=== PATIENT | male | born 1970 | race Caucasian/White ===

== ENCOUNTER 2018-06-27 15:24 | Emergency (ER) | payer OTHER ==
[~2018-06-27] VITALS: Ht 182.9 cm; Wt 90.7 kg
[~2018-06-27 15:24] MED LIST: CORICIDIN HBP1 EAC2 PO; FLONASE 0.05%50 MCG NASAL
[2018-06-27] MEDS ORDERED: LISINOPRIL10 MG PO (15:37)
[2018-06-27 16:19] LABS: HEMOGLOBIN 11.5 gm/dL (14.0-18.0); MCH 29.6 pg (26.0-34.0); MCHC 33.2 g/dL (28.0-37.0)
[2018-06-27 16:23] LABS: HEMATOCRIT 34.5 % (42.0-52.0); MCV 89.1 fL (80.0-100.0); NUCLEATED RBCS 0 /100WBC; RBC 3.87 mil/uL (4.50-6.00); RDW-CV 24.1 % (10.5-14.5)
[2018-06-27 16:26] VITALS: BP 146/104
[2018-06-27 16:28] LABS: APTT 28.2 Seconds (25.0-31.3); INR 1.1
[2018-06-27 16:31] LABS: WBC 1.3 thou/uL (4.0-11.0)
[2018-06-27 16:32] LABS: CALCIUM 7.6 mg/dL (8.5-10.1); CREATININE 0.6 mg/dL (0.6-1.3)
[2018-06-27 16:36] LABS: ALBUMIN 3.9 g/dL (3.4-5.0); TOTAL BILIRUBIN 1.8 mg/dL (<0.1-1.0); TOTAL PROTEIN 6.8 g/dL (6.4-8.2)
[2018-06-27 16:48] LABS: URINE BILIRUBIN NEGATIVE (Negative); URINE BLOOD NEGATIVE (Negative); URINE CLARITY CLEAR; URINE COLOR YELLOW; URINE GLUCOSE-RANDOM NEGATIVE (Negative); URINE KETONES 1+ (Negative); URINE LEUKOCYTES-REFLEX NEGATIVE (Negative); URINE NITRITE-REFLEX NEGATIVE (Negative); URINE PROTEIN NEGATIVE (Negative); URINE SPECIFIC GRAVITY <= 1.005 (1.005-1.030)
[2018-06-27 16:50] LABS: ABSOLUTE LYMPHOCYTES 0.3 thou/uL (0.8-5.3); ABSOLUTE MONOCYTES 0.2 thou/uL (0.0-1.2); ABSOLUTE NEUTROPHILS 0.8 thou/uL (1.6-8.1); ATYPICAL LYMPHS 4 %
[2018-06-27 16:51] LABS: ANISOCYTOSIS 1+; PLATELET ESTIMATE DECREASED; POIKILOCYTOSIS 1+
[2018-06-27 16:52] LABS: PLATELET COUNT* 58 thou/uL (150-400)
[2018-06-27 16:55] LABS: AMP/METHAMP Negative (Negative); BARBITURATES Negative (Negative); BENZODIAZEPINES Negative (Negative); COCAINE Negative (Negative); METHADONE Negative (Negative); OPIATES Negative (Negative); PCP Negative (Negative); THC Negative (Negative)
== END 2018-06-27 16:15 | disposition left against medical advice (07) ==
LOC: M.ERS 15:24
PROVIDERS: Nurse Practitioner Family
DX: S00.83XA Contusion of other part of head, initial encounter (principal); R06.02 Shortness of breath; R05 Cough; I10 Essential (primary) hypertension; E78.00 Pure hypercholesterolemia, unspecified; W18.39XA Other fall on same level, initial encounter; Y93.89 Activity, other specified; Y92.89 Other specified places as the place of occurrence of the external cause; Y99.8 Other external cause status; Z79.899 Other long term (current) drug therapy

== ENCOUNTER 2019-03-20 19:04 | Emergency (ER) | payer OTHER ==
[~2019-03-20] VITALS: Ht 182.9 cm; Wt 86.2 kg
[~2019-03-20 19:04] MED LIST changes: +LISINOPRIL10 MG PO
[2019-03-20 19:43] LABS: ABSOLUTE MONOCYTES 0.5 thou/uL (0.0-1.2); ABSOLUTE NEUTROPHILS 1.8 thou/uL (1.6-8.1); BASOPHILS 1.2 %; EOSINOPHILS 0.2 %; HEMATOCRIT 36.1 % (42.0-52.0); HEMOGLOBIN 12.2 gm/dL (14.0-18.0); MCH 34.3 pg (26.0-34.0); MCHC 33.7 g/dL (28.0-37.0); MCV 101.9 fL (80.0-100.0); MONOCYTES 14.9 %; MPV 8.8 fl. (7.2-11.1); NUCLEATED RBCS 0 /100WBC; PLATELET COUNT* 51 thou/uL (150-400); POLYS 53.7 %; RBC 3.54 mil/uL (4.50-6.00); RDW-CV 16.6 % (10.5-14.5); WBC 3.3 thou/uL (4.0-11.0)
[2019-03-20 19:59] LABS: CALCIUM 8.4 mg/dL (8.5-10.1); CREATININE 0.6 mg/dL (0.6-1.3); POTASSIUM 3.1 mmol/L (3.5-5.1)
[2019-03-20 20:03] LABS: ALBUMIN 3.5 g/dL (3.4-5.0); TOTAL BILIRUBIN 5.2 mg/dL (<0.1-1.0); TOTAL PROTEIN 7.7 g/dL (6.4-8.2)
[2019-03-21 00:45] VITALS: BP 130/101
--- NOTE | 2019-03-21 11:28 | EKG ---
[place] [address] ELECTROCARDIOGRAM REPORT Name: CAMILA FRY Room: [facility]#: [id number] Admission: 03/20/19 Attend Phys: Discharge: 03/21/19 Date of : 66 Report #: [id number] THIS REPORT FOR: //name// [facility] ED Test Date: 2019-03-20 Test Time: 19:17:13 Pat Name: CAMILA FRY Department: Room: Gender: M Commissioning Specialist: : [id number] Requested By: Becca Anderson Order Number: [id number] Reading MD: Tavon Shah Measurements Intervals [place] Rate: 87 P: 34 [place]: 202 QRS: -19 QRSD: 132 T: 31 QT: 414 QTc: 498 Interpretive Statements Sinus rhythm Borderline prolonged [place] interval IVCD, consider atypical RBBB Compared to ECG 07/10/2008 14:19:08 Sinus bradycardia no longer present Electronically Signed On 03-21-2019 11:28:27 CDT by Tavon Shah [email or web address] <ELECTRONICALLY SIGNED> By: Tavon Shah MD, [facility] 03/21/19 1128 16 16 Tavon Shah MD, [facility] /EPI
== END 2019-03-21 00:45 | disposition home or self-care (01) ==
LOC: M.ERS 19:04
PROVIDERS: Emergency Medicine
DX: F10.129 Alcohol abuse with intoxication, unspecified (principal); I10 Essential (primary) hypertension; E78.00 Pure hypercholesterolemia, unspecified; E78.5 Hyperlipidemia, unspecified; Y90.0 Blood alcohol level of less than 20 mg/100 ml